=== PATIENT | female | born 1935 | race Caucasian/White ===

== ENCOUNTER 2017-04-16 15:56 | Inpatient (IN) | payer MEDICARE, BC ==
[2017-04-16] MEDS ORDERED: SODIUM CHLORIDE 0.9% 1,000 ML IV STA (17:22)
[2017-04-16] MEDS ORDERED: ONDANSETRON 4 MG/2 ML VIAL IVP STA (17:22)
[2017-04-16] MEDS ORDERED: HYDROmorphone 1 MG/ML 1 ML SYRINGE IVP STA (17:22)
--- NOTE | 2017-04-16 17:44 | ED ---
General Adult HPI - General Chief complaint: Extremity Problem,Nontraumatic Stated complaint: Shoulder pain Time Seen by Provider: 04/16/17 16:54 Source: patient, family, RN notes reviewed, old records reviewed Mode of arrival: wheelchair Limitations: no limitations - History of Present Illness Initial comments: This patient is a 81-year-old female presents emergency Department with multiple chief complaints. Patient reports that she has worsening left shoulder pain after completing 4 weeks of physical therapy. She has a history of a septic joint within her right shoulder, which she was treated with IV antibiotics for many months approximately 2 years ago. Patient reports that she has pain with any range of motion of the shoulder and elbow. She reports no lacerations or falls or trauma. She's also had increased overall weakness. She reports that her daughter is out of town and is unable to care area she reports that because of the severe arm pain she is unable to keep take care of her ADLs including feeding herself, and taking care of her hygiene needs. Patient states that she has some occasional chest pain and shortness of breath. She denies any nausea or vomiting. Denies any specific back pain or dysuria or abdominal pain.. She reports increased falls. She does ambulate with a walker. She arrives here with a cousin who is unable to take care of her. - Related Data Home Medications Medication Instructions Recorded Confirmed Albuterol Inhaler [Ventolin Hfa 1 - 2 puff INHALATION RT-Q6H PRN 04/16/17 Inhaler] Allopurinol [Zyloprim] 300 mg PO DAILY 04/16/17 04/16/17 Aspirin [Adult Low Dose Aspirin EC] 81 mg PO DAILY 04/16/17 04/16/17 Cholecalciferol (Vitamin D3) 2,000 unit PO DAILY 04/16/17 04/16/17 [Vitamin D3] Ferrous Sulfate [Feosol] 325 mg PO DAILY 04/16/17 04/16/17 Fluticasone Nasal Astor [Flonase 1 spray EA NOSTRIL DAILY PRN 04/16/17 04/16/17 Nasal Astor] Folic Acid 0.8 mg PO DAILY 04/16/17 04/16/17 Gabapentin [Neurontin] 200 mg PO BID 04/16/17 04/16/17 HYDROmorphone [Dilaudid] 2 mg PO DAILY PRN 04/16/17 04/16/17 Hydroxychloroquine Sulfate 200 mg PO BID 04/16/17 04/16/17 [Plaquenil] LORazepam [Ativan] 1 mg PO HS PRN 04/16/17 04/16/17 Methotrexate [Xatmep Oral Soln] 2.5 mg PO SA 04/16/17 04/16/17 Metoprolol Succinate [Toprol XL] 50 mg PO DAILY 04/16/17 04/16/17 Omeprazole 20 mg PO BID 04/16/17 04/16/17 Pilocarpine HCl 5 mg PO DAILY 04/16/17 04/16/17 Tiotropium 18 Mcg/Puff [Spiriva] 1 cap INHALATION RT-DAILY PRN 04/16/17 04/16/17 Venlafaxine HCl [Effexor] 37.5 mg PO DAILY@1200 04/16/17 04/16/17 Zinc 50 mg PO DAILY 04/16/17 04/16/17 amLODIPine [Norvasc] 2.5 mg PO DAILY 04/16/17 04/16/17 rOPINIRole HCL [Requip] 2 mg PO BID 04/16/17 04/16/17 Allergies Allergy/AdvReac Type Severity Reaction Status Date / Time Penicillins Allergy Rash/Hives Verified 04/16/17 18:06 meloxicam [From Mobic] AdvReac Nausea & Verified 04/16/17 18:06 Vomiting Review of Systems ROS Statement: Those systems with pertinent positive or pertinent negative responses have been documented in the HPI. ROS Other: All systems not noted in ROS Statement are negative. Past Medical History Past Medical History: Cancer, Chest Pain / Angina, COPD, Hyperlipidemia, Hypertension, Osteoarthritis (OA), Rheumatoid Arthritis (RA), Sleep Apnea/CPAP/ BIPAP Additional Past Medical History / Comment(s): gout lupus depression History of Any Multi-Drug Resistant Organisms: None Reported Past Surgical History: Appendectomy, Breast Surgery, Cholecystectomy, Heart Catheterization, Joint Replacement, Orthopedic Surgery Past Psychological History: Depression Smoking Status: Former smoker Past Alcohol Use History: None Reported Past Drug Use History: None Reported General Exam - General Exam Comments Initial Comments: This is a frail appearing 81-year-old female. Limitations: no limitations General appearance: alert, in no apparent distress Head exam: Present: atraumatic, normocephalic, normal inspection Eye exam: Present: normal appearance, PERRL, EOMI. Absent: scleral icterus, conjunctival injection, periorbital swelling ENT exam: Present: normal exam, mucous membranes moist. Absent: normal oropharynx (dry oropharynx) Neck exam: Present: normal inspection. Absent: tenderness, meningismus, lymphadenopathy Respiratory exam: Present: normal lung sounds bilaterally, other (right breast mastectomy). Absent: respiratory distress, wheezes, rales, rhonchi, stridor Cardiovascular Exam: Present: regular rate, normal rhythm, normal heart sounds. Absent: systolic murmur, diastolic murmur, rubs, gallop, clicks GI/Abdominal exam: Present: soft, normal bowel sounds, other (obese abdomen). Absent: distended, tenderness, guarding, rebound, rigid Extremities exam: Present: normal capillary refill. Absent: normal inspection, full ROM, tenderness, pedal edema, joint swelling, calf tenderness Left Shoulder Exam: Present: normal inspection. Absent: full ROM (limited ROM. Unable to abduct, flex or extend arm. ) Upper Arm exam: Present: normal inspection, tenderness (Significant tenderness and over left arm deltoid). Absent: full ROM Elbow exam: Present: normal inspection, full ROM Forearm Wrist exam: Present: normal inspection, full ROM Hand Wrist exam: Present: normal inspection, full ROM Back exam: Present: normal inspection Neurological exam: Present: alert, oriented X3, CN II-XII intact Psychiatric exam: Present: normal affect, normal mood Skin exam: Present: warm, dry, intact, normal color. Absent: rash Course Vital Signs 04/16/17 04/16/17 04/16/17 16:00 18:21 19:28 Temperature 98.6 F 98.1 F Pulse Rate 103 H 92 93 Respiratory 18 18 18 Rate Blood Pressure 125/66 142/69 132/61 O2 Sat by Pulse 99 97 99 Oximetry Medical Decision Making - Medical Decision Making 81-year-old female with multiple comorbidities including Dilshad arthritis, rheumatoid arthritis, breast cancer, COPD, coronary artery disease presents today with multiple complaints. She reports worsening left shoulder pain after completing physical therapy over the past 4 weeks. She has history of septic joint within her right shoulder. Patient has no fever, but arrived with chills and shivering in the emergency department. Patient reports occasional chest pain and shortness of breath as well. Patient EKG was reviewed and shows some sinus rhythm with PVCs, bundle branch block. Left ventricular hypertrophy. No previous EKGs to compare from. Patient chest x-ray was reviewedsignificant abnormalities at this time, evidence of cardiomegaly. Left shoulder x-ray shows severe degenerative changes questionable rotator cuff tear. Patient urinalysis positive for urinary infection, we will do a culture at this time. Given patient's increased weakness, and unable to perform ADLs, we will admit at this time. I also started the patient on Levaquin for evidence of UTI. She'll be admitted for frequent falls, UTI, and left shoulder pain. - Lab Data Result diagrams: 04/16/17 18:10 04/16/17 18:10 Lab Results 04/16/17 04/16/17 04/16/17 Range/Units 18:05 18:10 18:10 WBC 11.9 H (3.8-10.6) k/uL RBC 3.56 L (3.80-5.40) m/uL Hgb 11.5 (11.4-16.0) gm/dL Hct 35.9 (34.0-46.0) % MCV 100.7 H (80.0-100.0) fL MCH 32.4 (25.0-35.0) pg MCHC 32.1 (31.0-37.0) g/dL RDW 15.4 (11.5-15.5) % Plt Count 269 (150-450) k/uL Neutrophils % 75 % Lymphocytes % 17 % Monocytes % 5 % Eosinophils % 1 % Basophils % 1 % Neutrophils # 8.9 H (1.3-7.7) k/uL Lymphocytes # 2.1 (1.0-4.8) k/uL Monocytes # 0.6 (0-1.0) k/uL Eosinophils # 0.1 (0-0.7) k/uL Basophils # 0.1 (0-0.2) k/uL Macrocytosis Slight PT (9.0-12.0) sec INR (<1.2) APTT (22.0-30.0) sec Sodium (137-145) mmol/L Potassium (3.5-5.1) mmol/L Chloride (98-107) mmol/L Carbon Dioxide (22-30) mmol/L Anion Gap mmol/L BUN (7-17) mg/dL Creatinine (0.52-1.04) mg/dL Est GFR (MDRD) Af Amer (>60 ml/min/1.73 sqM) Est GFR (MDRD) Non-Af (>60 ml/min/1.73 sqM) Glucose (74-99) mg/dL Plasma Lactic Acid Sina (0.7-2.0) mmol/L Calcium (8.4-10.2) mg/dL Magnesium (1.6-2.3) mg/dL Total Bilirubin (0.2-1.3) mg/dL AST (14-36) U/L ALT (9-52) U/L Alkaline Phosphatase (38-126) U/L Total Creatine Kinase 45 (30-135) U/L CK-MB (CK-2) 1.0 (0.0-2.4) ng/mL CK-MB (CK-2) Rel Index 2.2 Troponin I <0.012 (0.000-0.034) ng/mL Total Protein (6.3-8.2) g/dL Albumin (3.5-5.0) g/dL Urine Color Yellow Urine Appearance Cloudy H (Clear) Urine pH 5.5 (5.0-8.0) Ur Specific [place] 1.022 (1.001-1.035) Urine Protein 2+ H (Negative) Urine Glucose (UA) Negative (Negative) Urine Ketones Negative (Negative) Urine Blood Negative (Negative) Urine Nitrite Negative (Negative) Urine Bilirubin 1+ H (Negative) Urine Urobilinogen 2.0 (<2.0) mg/dL Ur Leukocyte Esterase Large H (Negative) Urine WBC 19 H (0-5) /hpf Ur Squamous Epith Cells 24 H (0-4) /hpf Urine Bacteria Occasional H (None) /hpf Hyaline Casts 34 H (0-2) /lpf Urine Mucus Few H (None) /hpf 04/16/17 04/16/17 04/16/17 Range/Units 18:10 18:10 18:10 WBC (3.8-10.6) k/uL RBC (3.80-5.40) m/uL Hgb (11.4-16.0) gm/dL Hct (34.0-46.0) % MCV (80.0-100.0) fL MCH (25.0-35.0) pg MCHC (31.0-37.0) g/dL RDW (11.5-15.5) % Plt Count (150-450) k/uL Neutrophils % % Lymphocytes % % Monocytes % % Eosinophils % % Basophils % % Neutrophils # (1.3-7.7) k/uL Lymphocytes # (1.0-4.8) k/uL Monocytes # (0-1.0) k/uL Eosinophils # (0-0.7) k/uL Basophils # (0-0.2) k/uL Macrocytosis PT 10.9 (9.0-12.0) sec INR 1.1 (<1.2) APTT 21.3 L (22.0-30.0) sec Sodium 138 (137-145) mmol/L Potassium 4.4 (3.5-5.1) mmol/L Chloride 99 (98-107) mmol/L Carbon Dioxide 27 (22-30) mmol/L Anion Gap 12 mmol/L BUN 20 H (7-17) mg/dL Creatinine 0.80 (0.52-1.04) mg/dL Est GFR (MDRD) Af Amer >60 (>60 ml/min/1.73 sqM) Est GFR (MDRD) Non-Af >60 (>60 ml/min/1.73 sqM) Glucose 120 H (74-99) mg/dL Plasma Lactic Acid Sina 1.2 (0.7-2.0) mmol/L Calcium 9.4 (8.4-10.2) mg/dL Magnesium 1.3 L (1.6-2.3) mg/dL Total Bilirubin 0.6 (0.2-1.3) mg/dL AST 29 (14-36) U/L ALT 42 (9-52) U/L Alkaline Phosphatase 69 (38-126) U/L Total Creatine Kinase (30-135) U/L CK-MB (CK-2) (0.0-2.4) ng/mL CK-MB (CK-2) Rel Index Troponin I (0.000-0.034) ng/mL Total Protein 6.8 (6.3-8.2) g/dL Albumin 3.8 (3.5-5.0) g/dL Urine Color Urine Appearance (Clear) Urine pH (5.0-8.0) Ur Specific [place] (1.001-1.035) Urine Protein (Negative) Urine Glucose (UA) (Negative) Urine Ketones (Negative) Urine Blood (Negative) Urine Nitrite (Negative) Urine Bilirubin (Negative) Urine Urobilinogen (<2.0) mg/dL Ur Leukocyte Esterase (Negative) Urine WBC (0-5) /hpf Ur Squamous Epith Cells (0-4) /hpf Urine Bacteria (None) /hpf Hyaline Casts (0-2) /lpf Urine Mucus (None) /hpf 04/16/17 18:50 Patient's EKG shows sinus rhythm with PVCs. Possible left atrial Enlargement. Right Bundle Branch Block. Left anterior fascicular block. Left ventricular hypertrophy. Patient has been generally weak 89 beats were minute. GA interval 186 no seconds. QRS duration 140 ms. QT QTc is 4 09/12/1992 milliseconds. - Radiology Data Radiology results: report reviewed Cardiomegaly with chronic parenchymal changes without suspicious acute cardio primary process. Left shoulder x-ray was reviewed. There is high riding left humeral head suggesting chronic rotator cuff tear. Marked subchondral cystic change with acromion his superolateral aspect of humeral head. Spurring inferior and medial humeral head and glenoid articulation. Her Calcification at the Acromioclavicular Joint with Joint Space Loss. Osseous Structures Are Denies. Initially Ribs Are Intact and Unremarkable. Chronic Parenchymal Change and Visualized Lung Is Noted. Overall Impression Shows Demineralization and Degenerative Changes over the Left Shoulder. Disposition Clinical Impression: UTI (urinary tract infection), Frequent falls, Left shoulder pain Disposition: ADMITTED IP TO THIS HOSP Condition: Good Referrals: Gunner Nelson MD [Primary Care Provider] - 1-2 days Time of Disposition: 19:48
[2017-04-16 18:36] LABS: Basophils # (A) 0.1 k/uL (0-0.2); Basophils % (A) 1 %; Eosinophils # (A) 0.1 k/uL (0-0.7); Eosinophils % (A) 1 %; HCT 35.9 % (34.0-46.0); HGB 11.5 gm/dL (11.4-16.0); Lymphocytes # (A) 2.1 k/uL (1.0-4.8); Lymphocytes % (A) 17 %; MCH 32.4 pg (25.0-35.0); MCHC 32.1 g/dL (31.0-37.0); MCV 100.7 fL (80.0-100.0); Macrocytosis Slight; Monocytes # (A) 0.6 k/uL (0-1.0); Monocytes % (A) 5 %; Neutrophils # (A) 8.9 k/uL (1.3-7.7); Neutrophils % (A) 75 %; Platelet Count 269 k/uL (150-450); RBC 3.56 m/uL (3.80-5.40); RDW 15.4 % (11.5-15.5); WBC 11.9 k/uL (3.8-10.6)
[2017-04-16 18:42] LABS: Appearance,Urine Cloudy (Clear); Bacteria,Urine Occasional /hpf; Bilirubin,Urine 1+ (Negative); Blood,Urine Negative (Negative); Color,Urine Yellow; Glucose,Urine (UA) Negative (Negative); Hyaline Casts,Urine 34 /lpf (0-2); Ketones,Urine Negative (Negative); Leukocyte Esterase,Urine Large (Negative); Mucus,Urine Few /hpf; Nitrite,Urine Negative (Negative); PH, Urine 5.5 (5.0-8.0); Protein,Urine 2+ (Negative); Specific Gravity,Urine 1.022 (1.001-1.035); Squamous Epithelial Cell,Urine 24 /hpf (0-4); WBC,Urine 19 /hpf (0-5)
--- NOTE | 2017-04-16 18:47 | XR ---
EXAMINATION TYPE: XR shoulder complete LT DATE OF EXAM: 04/16/2017 CLINICAL HISTORY: Left shoulder pain. TECHNIQUE: Three views of the left shoulder are obtained. COMPARISON: None. FINDINGS: There is no acute fracture/dislocation evident in the left shoulder. There is high riding left humeral head suggesting chronic rotator cuff tear. There is marked subchondral cystic change in the acromion and superolateral aspect of the humeral head. There is spurring inferior medial humeral head and glenoid articulation. There is capsular calcification at acromioclavicular joint with joint space loss. Osseous structures are demineralized The visualized ribs are intact and unremarkable. Chr onic parenchymal change in the visualized lung is noted. IMPRESSION: There is demineralization and degenerative changes as detailed above.
[2017-04-16 18:49] LABS: ALT 42 U/L (9-52); AST 29 U/L (14-36); Albumin 3.8 g/dL (3.5-5.0); Alkaline Phosphatase 69 U/L (38-126); Anion Gap 12 mmol/L; Blood Urea Nitrogen 20 mg/dL (7-17); Calcium 9.4 mg/dL (8.4-10.2); Carbon Dioxide 27 mmol/L (22-30); Chloride 99 mmol/L (98-107); Glucose 120 mg/dL (74-99); Magnesium 1.3 mg/dL (1.6-2.3); Potassium 4.4 mmol/L (3.5-5.1); Sodium 138 mmol/L (137-145); Total Bilirubin 0.6 mg/dL (0.2-1.3); Total Protein 6.8 g/dL (6.3-8.2)
--- NOTE | 2017-04-16 18:49 | XR ---
EXAMINATION TYPE: XR chest 2V DATE OF EXAM: 04/16/2017 COMPARISON: Prior chest x-ray October 30, 2012 HISTORY: Numbness and weakness. TECHNIQUE: Frontal and lateral views of the chest are obtained. FINDINGS: There is chronic parenchymal change without suspicious focal air space opacity, pleural ef fusion, or pneumothorax seen. The cardiac silhouette size is enlarged. The osseous structures are demineralized. Right axillary surgical clips are redemonstrated. There is interval removal of right s houlder prosthesis with heterotopic ossification. IMPRESSION: Cardiomegaly and chronic parenchymal changes without suspicious acute pulmonary process.
[2017-04-16 18:50] LABS: Creatine Kinase 45 U/L (30-135)
[2017-04-16 19:03] LABS: Troponin I <0.012 ng/mL (0.000-0.034)
[2017-04-16 19:12] LABS: INR 1.1 (<1.2); Partial Thromboplastin Time 21.3 sec (22.0-30.0); Prothrombin Time 10.9 sec (9.0-12.0)
[2017-04-16] MEDS ORDERED: LEVOFLOXACIN 750MG-D5W PMX 750 MG in DEXTROSE/WATER 1 150ML.BAG IVPB STA (19:24)
[2017-04-16] MEDS: SODIUM CHLORIDE 0.9% 1,000 ML IV SCH (19:26)
[2017-04-16] MEDS ORDERED: NALOXONE 0.4 MG/ML 1 ML VIAL IV PRN (19:50)
[2017-04-16] MEDS ORDERED: HYDROmorphone 1 MG/ML 1 ML SYRINGE IVP PRN (19:50)
[2017-04-16] MEDS ORDERED: ACETAMINOPHEN TAB 325 MG TAB PO PRN (19:50)
[2017-04-16] MEDS ORDERED: BISACODYL 5 MG TABLET.DR PO PRN (19:50)
[2017-04-16] MEDS ORDERED: ONDANSETRON 4 MG/2 ML VIAL IVP PRN (19:50)
[2017-04-16] MEDS ORDERED: IPRATROPIUM 0.5 MG/2.5 ML NEBU INHALATION PRN (19:52)
[2017-04-16] MEDS ORDERED: FLUTICASONE 50MCG/SPRAY NASAL 16GM EA NOSTRIL PRN (19:52)
[2017-04-16] MEDS ORDERED: HYDROmorphone 2 MG TAB PO PRN (19:52)
[2017-04-16] MEDS ORDERED: METHOTREXATE SODIUM 2.5 MG TAB PO SCH (20:00)
[2017-04-16 23:10] VITALS: BMI 35.7
[2017-04-16] MEDS: PANTOPRAZOLE 40 MG TABLET PO SCH (23:47)
[2017-04-16] MEDS: GABAPENTIN 100 MG CAP PO SCH (23:47)
[2017-04-16] MEDS: HYDROXYCHLOROQUINE SULFATE 200 MG TAB PO SCH (23:47)
[2017-04-17 00:42] LABS: Creatine Kinase MB 0.9 ng/mL (0.0-2.4); Troponin I 0.018 ng/mL (0.000-0.034)
[2017-04-17] MEDS: SODIUM CHLORIDE 0.9% 1,000 ML IV SCH (06:10)
[2017-04-17] MEDS: IBUPROFEN 400 MG TAB PO PRN ×2 (07:02→22:15)
[2017-04-17 08:12] LABS: Creatine Kinase MB 0.9 ng/mL (0.0-2.4); Troponin I 0.016 ng/mL (0.000-0.034)
[2017-04-17] MEDS: CHOLECALCIFEROL 1,000 UNIT TAB PO SCH (08:41)
[2017-04-17] MEDS: PANTOPRAZOLE 40 MG TABLET PO SCH ×2 (08:41→20:05)
[2017-04-17] MEDS: PILOCARPINE 5 MG TAB PO SCH (08:41)
[2017-04-17] MEDS: METOPROLOL SUCCINATE (ER) 50 MG TAB.ER.24H PO SCH (08:41)
[2017-04-17] MEDS: HYDROXYCHLOROQUINE SULFATE 200 MG TAB PO SCH ×2 (08:41→20:05)
[2017-04-17] MEDS: amLODIPine 2.5 MG TAB PO SCH (08:41)
[2017-04-17] MEDS: GABAPENTIN 100 MG CAP PO SCH ×2 (08:41→20:05)
[2017-04-17] MEDS: ALLOPURINOL 300 MG TAB PO SCH (08:42)
[2017-04-17] MEDS: FERROUS SULFATE 325 MG TAB PO SCH (08:42)
[2017-04-17] MEDS: ZINC SULFATE 220 MG CAP PO SCH (08:42)
[2017-04-17] MEDS: FOLIC ACID 1 MG TAB PO SCH (08:43)
[2017-04-17] MEDS: ASPIRIN 81 MG PO SCH (08:43)
[2017-04-17] MEDS: PANTOPRAZOLE 40 MG/10 ML VIAL IV SCH (08:51)
[2017-04-17] MEDS: VENLAFAXINE HCL 37.5 MG TAB PO SCH (13:00)
[2017-04-17] MEDS: MAGNESIUM SULFATE-D5W PMX 1 GM in DEXTROSE/WATER 1 100ML.BAG IVPB SCH ×3 (13:24→16:23)
[2017-04-17] MEDS: HYDROcodone/APAP 5-325MG 1 EACH TAB PO PRN (18:06)
[2017-04-17] MEDS: LORazepam 1 MG TAB PO PRN (22:15)
[2017-04-18] MEDS: GABAPENTIN 100 MG CAP PO SCH ×2 (08:10→20:53)
[2017-04-18] MEDS: ZINC SULFATE 220 MG CAP PO SCH (08:10)
[2017-04-18] MEDS: FERROUS SULFATE 325 MG TAB PO SCH (08:11)
[2017-04-18] MEDS: ALLOPURINOL 300 MG TAB PO SCH (08:11)
[2017-04-18] MEDS: ASPIRIN 81 MG PO SCH (08:11)
[2017-04-18] MEDS: METOPROLOL SUCCINATE (ER) 50 MG TAB.ER.24H PO SCH (08:11)
[2017-04-18] MEDS: PANTOPRAZOLE 40 MG TABLET PO SCH ×2 (08:11→21:08)
[2017-04-18] MEDS: amLODIPine 2.5 MG TAB PO SCH (08:11)
[2017-04-18] MEDS: HYDROXYCHLOROQUINE SULFATE 200 MG TAB PO SCH ×2 (08:11→20:53)
[2017-04-18] MEDS: PILOCARPINE 5 MG TAB PO SCH (08:11)
[2017-04-18] MEDS: FOLIC ACID 1 MG TAB PO SCH (08:11)
[2017-04-18] MEDS: HYDROcodone/APAP 5-325MG 1 EACH TAB PO PRN ×2 (08:11→20:52)
[2017-04-18] MEDS: PANTOPRAZOLE 40 MG/10 ML VIAL IV SCH ×2 (08:15→20:53)
[2017-04-18] MEDS: VENLAFAXINE HCL 37.5 MG TAB PO SCH (10:57)
[2017-04-18] MEDS: CHOLECALCIFEROL 1,000 UNIT TAB PO SCH (10:57)
--- NOTE | 2017-04-18 19:13 | HP ---
HISTORY AND PHYSICAL CHIEF COMPLAINT: General debility and failure to thrive with bilateral shoulder pain. HISTORY OF PRESENT ILLNESS: This is another admission for this 81-year-old white female who has had multiple problems, including cancer of the breast, history of right shoulder replacement and secondary infection, for which the joint was removed. She has also been having a lot of pain in her left shoulder. She lives alone and is not handling things well. She cannot take care of herself any longer. She has also apparently been falling and came to the emergency room, where she was found to have also a urinary tract infection. REVIEW OF SYSTEMS: She denies any focal neurologic deficits, change in vision or hearing, headache, seizures, chest pain, palpitations, orthopnea, PND, abdominal pain, nausea, vomiting, hematemesis, melena, hematochezia, colitis, diverticulosis, diverticulitis, hemorrhoids, jaundice, hepatitis, cirrhosis, hematuria, frequency, urgency, renal failure, etc. She does have a history of atrial fibrillation. Past medical history, family history, and personal and social histories reveal that she is ALLERGIC to MOBIC and PENICILLIN. She has had numerous surgeries. She has had a cholecystectomy. She used to smoke but quit many many years ago. MEDICATIONS: Medications include: 1. Gabapentin 300 mg twice a day. 2. Hydroxychloroquine 200 mg twice a day. 3. Vitamin D 2000 units a day. 4. Ventolin HFA. 5. Venlafaxine 37.5 once a day. 6. Spiriva once a day. 7. CPAP machine. 8. Requip 2 mg twice a day. 9. Pilocarpine eyedrops. 10.Omeprazole 20 mg twice a day. 11.Metoprolol 50 mg once a day. 12.Methotrexate 1 gram once a week. 13.Hydromorphone 2 mg twice a day. 14.Flonase once a day. 15.Aspirin 81 mg a day. 16.Ativan 1 mg t.i.d. p.r.n. 17.Amlodipine 2.5 mg once a day. 18.Allopurinol 300 mg once a day. PHYSICAL EXAMINATION: Blood pressure 136/72, pulse 66, respirations 14 and she is afebrile. In general, she appeared to be overweight and uncomfortable. She was slightly pale. Head ears, eyes, nose, mouth and throat were normal, neck veins not distended. Carotids were normal. Chest was clear. Cardiac exam demonstrated atrial fibrillation and the abdomen was soft and non-tender. Extremities were normal except for the shoulders. She had postoperative changes of the right shoulder where her joint has been removed. She has decreased range of motion and internal and external rotation as well as abduction in the left shoulder. Neurologically she is intact. ADMITTING DIAGNOSES: 1. Frequent falls. 2. General debility and inability to use the shoulder. 3. History of carcinoma of the breast. 4. History of infection of right shoulder prosthesis. 5. Rheumatoid arthritis. 6. History of coronary artery disease. PLAN: 1. Bed rest. 2. IV fluids. 3. Pain control. 4. Discharge planning. MMODL / IJN: [id number] /
[2017-04-18] MEDS: ALBUTEROL NEBULIZED 2.5 MG/3 ML INHALATION PRN (20:19)
[2017-04-18] MEDS: LORazepam 1 MG TAB PO PRN (20:53)
--- NOTE | 2017-04-18 21:07 | PN ---
PROGRESS NOTE DATE OF SERVICE: 04/17/2017 CHIEF COMPLAINT: General debility due to arthritis, pain in both shoulders. HISTORY OF PRESENT ILLNESS: This lady is still having a lot of discomfort in the shoulders. She was going to therapy, and she thinks this aggravated things. She lives alone and will need help for some period of time. PHYSICAL EXAMINATION: She is afebrile. Chest is clear. Cardiac exam is normal. Abdomen is soft, nontender. IMPRESSION: 1. General debility. 2. Bilateral shoulder pain. 3. History of carcinoma of the breast. 4. Frequent falling. PLAN: Will arrange for further evaluation after the first week, including a discharge plan. MMODL / IJN: [id number] /
--- NOTE | 2017-04-18 21:13 | PN ---
PROGRESS NOTE DATE OF SERVICE: 04/18/2017 CHIEF COMPLAINT: General debility. HISTORY OF PRESENT ILLNESS: This lady is just about the same, and she still has a lot of pain in both shoulders. We will plan to admit her to the hospital and then start working on a discharge plan. PHYSICAL EXAMINATION: Her chest is clear. Cardiac exam is normal. Abdomen is soft, nontender. IMPRESSION: 1. General debility. 2. Failure to use either shoulder. PLAN: healthcare advisory services manager referral for placement. MMODL / IJN: [id number] /
[2017-04-19] MEDS: SODIUM CHLORIDE 0.9% 1,000 ML IV SCH ×4 (06:01→20:24)
[2017-04-19] MEDS: ALLOPURINOL 300 MG TAB PO SCH (08:05)
[2017-04-19] MEDS: METOPROLOL SUCCINATE (ER) 50 MG TAB.ER.24H PO SCH (08:05)
[2017-04-19] MEDS: FERROUS SULFATE 325 MG TAB PO SCH (08:05)
[2017-04-19] MEDS: FOLIC ACID 1 MG TAB PO SCH (08:05)
[2017-04-19] MEDS: GABAPENTIN 100 MG CAP PO SCH ×2 (08:05→20:25)
[2017-04-19] MEDS: ZINC SULFATE 220 MG CAP PO SCH (08:05)
[2017-04-19] MEDS: PILOCARPINE 5 MG TAB PO SCH (08:05)
[2017-04-19] MEDS: amLODIPine 2.5 MG TAB PO SCH (08:05)
[2017-04-19] MEDS: PANTOPRAZOLE 40 MG TABLET PO SCH ×2 (08:05→20:24)
[2017-04-19] MEDS: CHOLECALCIFEROL 1,000 UNIT TAB PO SCH (08:06)
[2017-04-19] MEDS: HYDROXYCHLOROQUINE SULFATE 200 MG TAB PO SCH ×2 (08:06→20:24)
[2017-04-19] MEDS ORDERED: FERROUS SULFATE 325 MG TAB PO SCH (09:00)
[2017-04-19] MEDS: ASPIRIN 81 MG PO SCH (09:23)
[2017-04-19] MEDS: HYDROcodone/APAP 5-325MG 1 EACH TAB PO PRN ×4 (10:32→23:04)
[2017-04-19] MEDS: ALBUTEROL NEBULIZED 2.5 MG/3 ML INHALATION PRN (11:45)
[2017-04-19] MEDS: VENLAFAXINE HCL 37.5 MG TAB PO SCH (12:00)
[2017-04-19 15:19] VITALS: RESP 16
[2017-04-19] MEDS: LORazepam 1 MG TAB PO PRN (23:04)
[2017-04-20] MEDS: SODIUM CHLORIDE 0.9% 1,000 ML IV SCH ×3 (03:37→22:38)
--- NOTE | 2017-04-20 06:36 | PN ---
PROGRESS NOTE DATE OF SERVICE: 04/19/2017 CHIEF COMPLAINT: Failure to thrive and discomfort in both shoulders. HISTORY OF PRESENT ILLNESS: This lady is doing fairly well. There has been no interval change. She still has a great deal of pain in both shoulders and she is looking and going to [facility]. PHYSICAL EXAM: Chest is clear. Cardiac exam is normal. Shoulders are tender and irritable on almost any range of motion. IMPRESSION: 1. Acute pain in both shoulders. 2. History of carcinoma of the breast. 3. Hypertension. PLAN: Probably moved to [facility] when bed is available. MMODL / IJN: [id number] /
[2017-04-20] MEDS: PILOCARPINE 5 MG TAB PO SCH (08:46)
[2017-04-20] MEDS: FERROUS SULFATE 325 MG TAB PO SCH (08:46)
[2017-04-20] MEDS: HYDROXYCHLOROQUINE SULFATE 200 MG TAB PO SCH ×2 (08:46→20:51)
[2017-04-20] MEDS: amLODIPine 2.5 MG TAB PO SCH (08:47)
[2017-04-20] MEDS: FOLIC ACID 1 MG TAB PO SCH (08:47)
[2017-04-20] MEDS: CHOLECALCIFEROL 1,000 UNIT TAB PO SCH (08:47)
[2017-04-20] MEDS: GABAPENTIN 100 MG CAP PO SCH ×2 (08:47→20:51)
[2017-04-20] MEDS: ASPIRIN 81 MG PO SCH (08:47)
[2017-04-20] MEDS: ALLOPURINOL 300 MG TAB PO SCH (08:47)
[2017-04-20] MEDS: ZINC SULFATE 220 MG CAP PO SCH (08:47)
[2017-04-20] MEDS: PANTOPRAZOLE 40 MG TABLET PO SCH ×2 (08:48→20:51)
[2017-04-20] MEDS: METOPROLOL SUCCINATE (ER) 50 MG TAB.ER.24H PO SCH (08:48)
--- NOTE | 2017-04-20 12:42 | PN ---
PROGRESS NOTE DATE OF SERVICE: 04/20/2017. CHIEF COMPLAINT: Bilateral arthritis of the shoulders and inability to function with either upper extremity. HISTORY OF PRESENT ILLNESS: This lady is doing well. Pain continues. Discharge planning is working on getting her a bed at [facility]. PHYSICAL EXAM: Chest is clear. The cardiac exam is normal. The abdomen is soft and nontender. IMPRESSION: 1. Inability to use either upper extremity. 2. History of carcinoma of the breast. 3. General debility. PLAN: Wait for discharge plan. MMODL / IJN: [id number] /
[2017-04-20] MEDS: VENLAFAXINE HCL 37.5 MG TAB PO SCH (13:04)
[2017-04-20] MEDS: HYDROcodone/APAP 5-325MG 1 EACH TAB PO PRN ×2 (15:43→23:26)
[2017-04-20] MEDS: ALBUTEROL NEBULIZED 2.5 MG/3 ML INHALATION PRN ×2 (15:59→20:19)
[2017-04-20] MEDS: LORazepam 1 MG TAB PO PRN (23:26)
[2017-04-21 08:34] VITALS: TEMP 98.2
[2017-04-21] MEDS: HYDROcodone/APAP 5-325MG 1 EACH TAB PO PRN ×2 (08:39→14:26)
[2017-04-21] MEDS: METOPROLOL SUCCINATE (ER) 50 MG TAB.ER.24H PO SCH (08:40)
[2017-04-21] MEDS: FOLIC ACID 1 MG TAB PO SCH (08:40)
[2017-04-21] MEDS: amLODIPine 2.5 MG TAB PO SCH (08:40)
[2017-04-21] MEDS: GABAPENTIN 100 MG CAP PO SCH (08:40)
[2017-04-21] MEDS: ASPIRIN 81 MG PO SCH (08:40)
[2017-04-21] MEDS: CHOLECALCIFEROL 1,000 UNIT TAB PO SCH (08:40)
[2017-04-21] MEDS: HYDROXYCHLOROQUINE SULFATE 200 MG TAB PO SCH (08:40)
[2017-04-21] MEDS: ALLOPURINOL 300 MG TAB PO SCH (08:40)
[2017-04-21] MEDS: FERROUS SULFATE 325 MG TAB PO SCH (08:40)
[2017-04-21] MEDS: ZINC SULFATE 220 MG CAP PO SCH (09:22)
[2017-04-21] MEDS: PANTOPRAZOLE 40 MG TABLET PO SCH (09:22)
[2017-04-21] MEDS: PILOCARPINE 5 MG TAB PO SCH (09:22)
[2017-04-21] MEDS: SODIUM CHLORIDE 0.9% 1,000 ML IV SCH (10:58)
--- NOTE | 2017-04-21 12:13 | DS ---
DISCHARGE SUMMARY CHIEF COMPLAINT: General debility and failure to thrive due to loss range of motion and pain in both shoulders. HISTORY OF PRESENT ILLNESS AND PHYSICAL EXAM: Details of this lady's history and physical can be found in the initial workup. LABORATORY STUDIES: While she was in the hospital she had laboratory studies, details which can be found in the laboratory section of her chart. COURSE IN HOSPITAL: After admission, she was placed on bedrest and started on analgesics and attempted occupational therapy. Pain, loss of range of motion of both shoulders remains and it was felt she could not return home to live by herself and would require rehab care. Arrangements were made for her to go to [facility] and she will go there on the . FINAL DIAGNOSES: 1. Bilateral shoulder arthritis, tendinitis and loss range of motion. 2. History of carcinoma of the breast with history of infected prosthesis and osteomyelitis of the right shoulder. 3. Osteoarthritis of left shoulder. OPERATIONS: None. CONSULTATIONS: None. She is improved. MMODL / IJN: [id number] /
[2017-04-21] MEDS: VENLAFAXINE HCL 37.5 MG TAB PO SCH (12:27)
[2017-04-21 15:09] VITALS: BP 94/63; PULSE 74
== END 2017-04-21 15:25 | DRG 554 ==
LOC: EC 15:56 → 3OBS 21:01 → OBSVTOIN 04-18 15:56 → 3SUR 04-18 23:04
PROVIDERS: ADMIT Family Medicine; ATTEND Family Medicine
DX: M19.011 Primary osteoarthritis, right shoulder (principal); I11.9 Hypertensive heart disease without heart failure; I45.4 Nonspecific intraventricular block; J44.9 Chronic obstructive pulmonary disease, unspecified; N39.0 Urinary tract infection, site not specified; E78.5 Hyperlipidemia, unspecified; M75.91 Shoulder lesion, unspecified, right shoulder; M19.012 Primary osteoarthritis, left shoulder; M75.92 Shoulder lesion, unspecified, left shoulder; G47.30 Sleep apnea, unspecified; I25.10 Atherosclerotic heart disease of native coronary artery without angina pectoris; I51.7 Cardiomegaly; M06.9 Rheumatoid arthritis, unspecified; M10.9 Gout, unspecified; R29.6 Repeated falls; Z96.611 Presence of right artificial shoulder joint; R62.7 Adult failure to thrive; Z79.82 Long term (current) use of aspirin; Z79.899 Other long term (current) drug therapy; Z87.891 Personal history of nicotine dependence; Z88.6 Allergy status to analgesic agent; Z88.0 Allergy status to penicillin; Z79.51 Long term (current) use of inhaled steroids; Z79.891 Long term (current) use of opiate analgesic; Z85.3 Personal history of malignant neoplasm of breast
CPT/HCPCS: 36415; 71046; 80053; 81001; 82550; 82553; 83605; 83735; 84484; 85025; 85610; 85730; 87086; 93005; 94640; 94760; 96361; 96365; 96366; 96375; 99285

== ENCOUNTER 2018-07-21 11:17 | Inpatient (IN) | payer MEDICARE, BC, OTHER ==
[2018-07-21] MEDS ORDERED: VANCOMYCIN IV PER PHARMACY 1 EACH MISC MISCELLANE PRN (12:18)
--- NOTE | 2018-07-21 12:24 | ED ---
Extremity Problem HPI - General Chief complaint: Extremity Problem,Nontraumatic Stated complaint: Cellutitis in legs Time Seen by Provider: 07/21/18 11:47 Source: patient, family, RN notes reviewed, old records reviewed Mode of arrival: wheelchair Limitations: no limitations - History of Present Illness Initial comments: This is an 82-year-old male the ER for evaluation. Patient resents today for evaluation regards to bilateral lower extremity edema erythema and cellulitis. Patient has had her. Patient sent in by Batsheva to her family doctor was again sent patient in the ER for evaluation. Patient presents today with continued swelling. Patient does have lines of demarcation, cellulitis 6 but is spreading proximal to lie down lower extremity cellulitis and did previously, lines were drawn to measure infection spread. Infection is spreading proximal MD Complaint: extremity pain, extremity swelling, other (erythema, warmth) -: days(s) Location: bilateral lower extremity History of Same: Yes -: Yes fever Radiation: proximal Severity scale (1-10): 5 Quality: aching Consistency: constant Improves with: nothing Worsens with: nothing Associated Symptoms: fever - Related Data Home Medications Medication Instructions Recorded Confirmed Cholecalciferol (Vitamin D3) 2,000 unit PO DAILY 04/16/17 07/21/18 [Vitamin D3] Fluticasone Nasal [place] [Flonase 1 spray EA NOSTRIL DAILY PRN 04/16/17 07/21/18 Nasal [place]] Hydroxychloroquine Sulfate 200 mg PO BID 04/16/17 07/21/18 [Plaquenil] Omeprazole 20 mg PO BID 04/16/17 07/21/18 Tiotropium 18 Mcg/Puff [Spiriva] 1 cap INHALATION RT-DAILY PRN 04/16/17 07/21/18 rOPINIRole HCL [Requip] 2 mg PO BID 04/16/17 07/21/18 Acetaminophen [Tylenol] 500 mg PO Q4-6H PRN 07/21/18 07/21/18 Acetaminophen/Diphenhydramine 1 tab PO HS 07/21/18 07/21/18 [Tylenol PM Extra Strength] Albuterol Sulfate [Proventil Hfa] 2 puff INHALATION RT-Q6H PRN 07/21/18 07/21/18 Bisacodyl [Dulcolax] 10 mg RECTAL DAILY PRN 07/21/18 07/21/18 Budesonide [Pulmicort] 0.5 mg INHALATION BID 07/21/18 07/21/18 Clindamycin HCl [Cleocin] 600 mg PO BID 07/21/18 07/21/18 Folic Acid 0.8 mg PO DAILY 07/21/18 07/21/18 Furosemide [Lasix] 20 mg PO DAILY 07/21/18 07/21/18 Gabapentin [Neurontin] 300 mg PO TID 07/21/18 07/21/18 Hydrocodone/Acetaminophen [[place] 1 tab PO BID 07/21/18 07/21/18 10-325] Ipratropium-Albuterol Nebulize 1 vial INHALATION Q4H PRN 07/21/18 07/21/18 [Duoneb 0.5 mg-3 mg/3 ml Soln] Mag Hydrox/Al Hydrox/Simeth 15 ml PO QID PRN 07/21/18 07/21/18 [Maalox] Magnesium Hydroxide [Milk of 2,400 mg PO DAILY PRN 07/21/18 07/21/18 Magnesia] Menthol [Biofreeze] 1 applic TOPICAL QID PRN MDD 07/21/18 07/21/18 SHOULDERS AND BACK Montelukast Sodium [Singulair] 10 mg PO DAILY 07/21/18 07/21/18 Na Phos,M-B/Na Phos,Di-Ba [Fleet 133 ml RECTAL Q4D PRN 07/21/18 07/21/18 Adult] Nitroglycerin Sl Tabs [Nitrostat] 0.4 mg SUBLINGUAL Q5M PRN 07/21/18 07/21/18 Nystatin 100,000 Unit/gm Powd 1 applic TOPICAL BID 07/21/18 07/21/18 [Mycostatin Powder] Sennosides [Senna] 8.6 mg PO BID 07/21/18 07/21/18 Venlafaxine HCl ER [Effexor Xr] 37.5 mg PO DAILY 07/21/18 07/21/18 guaiFENesin [guaiFENesin Oral 200 mg PO TID PRN 07/21/18 07/21/18 Solution] Previous Rx's Medication Instructions Recorded Ferrous Sulfate [Iron (65 MG 325 mg PO DAILY tab 04/21/17 Elemental)] Allergies Allergy/AdvReac Type Severity Reaction Status Date / Time Penicillins Allergy Rash/Hives Verified 07/21/18 12:02 meloxicam [From Mobic] AdvReac Nausea & Verified 07/21/18 12:02 Vomiting Review of Systems ROS Statement: Those systems with pertinent positive or pertinent negative responses have been documented in the HPI. ROS Other: All systems not noted in ROS Statement are negative. Past Medical History Past Medical History: Cancer, Chest Pain / Angina, COPD, Hyperlipidemia, Hypertension, Osteoarthritis (OA), Rheumatoid Arthritis (RA), Sleep Apnea/CPAP/BIPAP Additional Past Medical History / Comment(s): gout lupus depression History of Any Multi-Drug Resistant Organisms: None Reported Past Surgical History: Appendectomy, Breast Surgery, Cholecystectomy, Heart Catheterization, Joint Replacement, Orthopedic Surgery Additional Past Surgical History / Comment(s): Rt. mastectomy Past Anesthesia/Blood Transfusion Reactions: No Reported Reaction Past Psychological History: Depression Smoking Status: Former smoker Past Alcohol Use History: None Reported Past Drug Use History: None Reported - Past Family History Brother(s) Family Medical History: Cancer Additional Family Medical History / Comment(s): rectal and liver Mother Family Medical History: CVA/TIA Father Family Medical History: Osteoarthritis (OA) General Exam - General Exam Comments Initial Comments: Bilateral lower extremity sialitis erythema and warmth was sleeping in both legs, spreading proximal to prior lines of demarcation Limitations: no limitations General appearance: alert, in no apparent distress Head exam: Present: atraumatic, normocephalic, normal inspection Eye exam: Present: normal appearance, PERRL, EOMI. Absent: scleral icterus, conjunctival injection, periorbital swelling ENT exam: Present: normal exam, mucous membranes moist Neck exam: Present: normal inspection. Absent: tenderness, meningismus, lymphadenopathy Respiratory exam: Present: normal lung sounds bilaterally. Absent: respiratory distress, wheezes, rales, rhonchi, stridor Cardiovascular Exam: Present: regular rate, normal rhythm, normal heart sounds. Absent: systolic murmur, diastolic murmur, rubs, gallop, clicks GI/Abdominal exam: Present: soft, normal bowel sounds. Absent: distended, tenderness, guarding, rebound, rigid Extremities exam: Present: normal inspection, full ROM, normal capillary refill. Absent: tenderness, pedal edema, joint swelling, calf tenderness Back exam: Present: normal inspection Neurological exam: Present: alert, oriented X3, CN II-XII intact Psychiatric exam: Present: normal affect, normal mood Skin exam: Present: warm, dry, intact, normal color. Absent: rash Course Vital Signs 07/21/18 11:30 Temperature 98.5 F Pulse Rate 94 Respiratory 18 Rate Blood Pressure 92/61 O2 Sat by Pulse 98 Oximetry - Reevaluation(s) Reevaluation #1: 07/21/18 12:23 Medical record reviewed Reevaluation #2: 07/21/18 12:23 Patient's in no acute distress - Consultations Consultation #1: Spoke with Dr. Nelson who is okay for admission Medical Decision Making - Medical Decision Making 82 female the ER for evaluation bilateral lower extremity cellulitis. Patient be admitted for blood cultures on IV antibiotics Disposition Clinical Impression: Bilateral lower leg cellulitis Disposition: ADMITTED IP TO THIS HOSP Condition: Fair Is patient prescribed a controlled substance at d/c from ED?: No Referrals: Gunner Nelson MD [Primary Care Provider] - 1-2 days
[2018-07-21] MEDS ORDERED: VANCOMYCIN 1,750 MG in SODIUM CHLORIDE 0.9% 500 ML 500 ML IVPB STA (12:32)
[2018-07-21 13:15] LABS: Basophils % (A) 0 %; Eosinophils # (A) 0.2 k/uL (0-0.7); Eosinophils % (A) 3 %; HGB 11.2 gm/dL (11.4-16.0); Hypochromasia Slight; Lymphocytes # (A) 0.9 k/uL (1.0-4.8); Lymphocytes % (A) 14 %; MCH 28.6 pg (25.0-35.0); Mean Platelet Volume 7.3; Monocytes # (A) 0.4 k/uL (0-1.0); Monocytes % (A) 6 %; Neutrophils # (A) 5.2 k/uL (1.3-7.7); Neutrophils % (A) 77 %; Platelet Count 113 k/uL (150-450); RBC 3.91 m/uL (3.80-5.40); RDW 15.5 % (11.5-15.5); WBC 6.8 k/uL (3.8-10.6)
[2018-07-21 13:24] LABS: ALT 32 U/L (9-52); AST 25 U/L (14-36); Alkaline Phosphatase 69 U/L (38-126); Anion Gap 11 mmol/L; Blood Urea Nitrogen 22 mg/dL (7-17); Carbon Dioxide 28 mmol/L (22-30); Chloride 102 mmol/L (98-107); Glucose 107 mg/dL (74-99); Magnesium 1.4 mg/dL (1.6-2.3); Phosphorus 3.1 mg/dL (2.5-4.5); Potassium 3.6 mmol/L (3.5-5.1); Sodium 141 mmol/L (137-145); Total Protein 6.8 g/dL (6.3-8.2)
[2018-07-21] MEDS ORDERED: NA PHOS,M-B/NA PHOS,DI-BA 133 ML ENEMA RECTAL PRN (18:17)
[2018-07-21] MEDS ORDERED: FLUTICASONE 50MCG/SPRAY NASAL 16GM EA NOSTRIL PRN (18:17)
[2018-07-21] MEDS ORDERED: guaiFENesin SYRUP 100MG/5ML 200 MG/10 ML CUP PO PRN (18:17)
[2018-07-21] MEDS ORDERED: MAG HYDROX/AL HYDROX/SIMETH 30 ML CUP PO PRN (18:17)
[2018-07-21] MEDS ORDERED: NITROGLYCERIN SL TABS 0.4 MG TAB SUBLINGUAL PRN (18:17)
[2018-07-21] MEDS ORDERED: ALBUTEROL INHALER 60 PUFF/8 GM INHALER INHALATION PRN (18:17)
[2018-07-21] MEDS ORDERED: BISACODYL 10 MG SUPP RECTAL PRN (18:17)
[2018-07-21] MEDS ORDERED: ACETAMINOPHEN TAB 500 MG TAB PO PRN (18:17)
[2018-07-21] MEDS ORDERED: MAGNESIUM HYDROXIDE 2,400 MG/10 ML CUP PO PRN (18:17)
[2018-07-21] MEDS: BUDESONIDE 0.5 MG/2 ML NEBU INHALATION SCH (19:42)
[2018-07-21] MEDS: IPRATROPIUM-ALBUTEROL 3 ML NEB INHALATION PRN (19:42)
--- NOTE | 2018-07-21 20:11 | HP ---
HISTORY AND PHYSICAL CHIEF COMPLAINT: Pain, swelling and redness in the lower legs. HISTORY OF PRESENT ILLNESS: This is another recent admission for this 82-year-old female. She has had a lot of trouble with various deep and superficial skin infections. She had a right mastectomy many years ago and has lymphedema in the right arm. She has had a shoulder replacement on the right which became infected and eventually had to be removed. She recently was in the hospital with cellulitis of the right forearm and right wrist. She came in on the day of admission from the half-way with redness, pain and swelling in both lower legs and mostly on the left, none on the right. She also had an elevated temperature. She was admitted for IV fluids, antibiotics and elevation. REVIEW OF SYSTEMS: She has had some chills. She has had no neurologic problems, change in the vision or the hearing, chest pain, cough, shortness of breath, heart disease, palpitations, orthopnea, PND, abdominal pain, nausea, vomiting, diarrhea, melena, hematochezia, dysuria, frequency, urgency, etc. Past medical history, family history, and personal and social histories are otherwise unremarkable and unchanged. She takes: 1. Acetaminophen. 2. Albuterol inhaler. 3. Dulcolax. 4. Pulmicort 0.5 twice a day. 5. Vitamin D3. 6. Clindamycin. 7. Ferrous sulfate. 8. Fluticasone spray. 9. Folic acid. 10.Lasix. 11.Gabapentin. 12.Guaifenesin. 13.Vicodin. 14.Plaquenil. 15.Updrafts of DuoNeb. 16.Singulair. 17.Fleets enema p.r.n. 18.Nystatin powder. 19.Omeprazole. 20.Senna. 21.Spiriva. 22.Venlafaxine. ALLERGIES: MELOXICAM and PENICILLIN. Remainder of the history is unremarkable. Laboratory studies revealed hemoglobin 11.2 with a white count of 6.8. Troponin was elevated. BUN was 22 and creatinine 11. PHYSICAL EXAMINATION: Blood pressure 94/73, pulse of 80, temperature 98.5, respirations of 18. In general, she is overweight and in no acute distress. Skin color is normal. Skin is warm and dry. Head, ears, eyes, nose, mouth and throat are normal. She has edema of the right arm from lymphatic obstruction. Her chest is clear. Cardiac exam is normal. The abdomen is protuberant and soft. Extremities demonstrate 3 to 4+ edema bilaterally. She has marked cellulitis on the left lower leg as well as the right, but it was worse on the left. It was tender. Neurologically she is intact. IMPRESSION: 1. Cellulitis and lymphangitis of the lower extremities. 2. History of carcinoma of the right breast. 3. Lymphedema in the right arm. PLAN: 1. Bed rest. 2. IV fluids. 3. Elevation of legs. 4. IV antibiotics. MMODL / IJN: [id number] /
[2018-07-21 20:23] VITALS: BMI 39.2
[2018-07-21] MEDS: GABAPENTIN 300 MG CAP PO SCH (21:03)
[2018-07-21] MEDS: HYDROXYCHLOROQUINE SULFATE 200 MG TAB PO SCH (21:54)
[2018-07-21] MEDS: SENNOSIDES 8.6 MG TAB PO SCH (21:54)
[2018-07-21] MEDS: HYDROcodone/APAP 10-325MG 1 EACH TAB PO SCH (21:55)
[2018-07-21] MEDS: PANTOPRAZOLE 40 MG TABLET PO SCH (21:55)
[2018-07-21] MEDS: NYSTATIN 100,000 UNIT/GM POWD 15 GM TOPICAL SCH (21:58)
[2018-07-22] MEDS: VANCOMYCIN 1,500 MG in SODIUM CHLORIDE 0.9% 250 ML IVPB SCH ×2 (05:26→21:49)
[2018-07-22] MEDS: BUDESONIDE 0.5 MG/2 ML NEBU INHALATION SCH ×2 (07:31→19:53)
[2018-07-22] MEDS: IPRATROPIUM-ALBUTEROL 3 ML NEB INHALATION PRN ×2 (07:31→11:13)
[2018-07-22] MEDS: HYDROcodone/APAP 10-325MG 1 EACH TAB PO SCH ×2 (08:33→21:48)
[2018-07-22] MEDS: GABAPENTIN 300 MG CAP PO SCH ×3 (08:33→21:48)
[2018-07-22] MEDS: FOLIC ACID 1 MG TAB PO SCH (08:34)
[2018-07-22] MEDS: ENOXAPARIN 40 MG/0.4 ML SYRINGE SQ SCH (08:34)
[2018-07-22] MEDS: HYDROXYCHLOROQUINE SULFATE 200 MG TAB PO SCH ×2 (08:34→21:47)
[2018-07-22] MEDS: FUROSEMIDE 20 MG TAB PO SCH (08:34)
[2018-07-22] MEDS: VENLAFAXINE HCL ER 37.5 MG CAP PO SCH (08:35)
[2018-07-22] MEDS: FERROUS SULFATE 325 MG TAB PO SCH (08:35)
[2018-07-22] MEDS: MONTELUKAST 10 MG TAB PO SCH (08:35)
[2018-07-22] MEDS: SENNOSIDES 8.6 MG TAB PO SCH ×2 (08:35→21:48)
[2018-07-22] MEDS: PANTOPRAZOLE 40 MG TABLET PO SCH ×2 (08:35→21:48)
[2018-07-22] MEDS: NYSTATIN 100,000 UNIT/GM POWD 15 GM TOPICAL SCH ×2 (10:36→22:00)
--- NOTE | 2018-07-22 15:17 | PN ---
PROGRESS NOTE DATE OF SERVICE: 07/22/2018 CHIEF COMPLAINT: Cellulitis of lower legs. HISTORY OF PRESENT ILLNESS: This lady is doing fairly well, except she is a little bit wheezy and congested, which is not unusual for her. She has had no fever or chills, and the legs are starting to improve. There is less erythema and edema. PHYSICAL EXAMINATION: Chest demonstrates some inspiratory and expiratory wheezing with occasional rales. Cardiac exam is normal. The abdomen is soft and protuberant. Extremities demonstrate that the cellulitis in the lower legs is slightly less violaceous and there is slightly less edema. IMPRESSION: 1. Cellulitis of both lower extremities. 2. Venostasis disease of the lower extremities. 3. Reactive airway disease. PLAN: Continue with IV fluids and antibiotics. MMODL / IJN: [id number] /
[2018-07-23] MEDS: BUDESONIDE 0.5 MG/2 ML NEBU INHALATION SCH ×2 (07:07→19:24)
[2018-07-23] MEDS: IPRATROPIUM-ALBUTEROL 3 ML NEB INHALATION PRN ×4 (07:07→19:24)
[2018-07-23] MEDS: ENOXAPARIN 40 MG/0.4 ML SYRINGE SQ SCH (09:08)
[2018-07-23] MEDS: HYDROXYCHLOROQUINE SULFATE 200 MG TAB PO SCH ×2 (09:08→20:29)
[2018-07-23] MEDS: VENLAFAXINE HCL ER 37.5 MG CAP PO SCH (09:08)
[2018-07-23] MEDS: FUROSEMIDE 20 MG TAB PO SCH (09:08)
[2018-07-23] MEDS: SENNOSIDES 8.6 MG TAB PO SCH ×2 (09:08→20:32)
[2018-07-23] MEDS: MONTELUKAST 10 MG TAB PO SCH (09:08)
[2018-07-23] MEDS: FERROUS SULFATE 325 MG TAB PO SCH (09:08)
[2018-07-23] MEDS: PANTOPRAZOLE 40 MG TABLET PO SCH ×2 (09:08→20:31)
[2018-07-23] MEDS: GABAPENTIN 300 MG CAP PO SCH ×3 (09:08→20:32)
[2018-07-23] MEDS: FOLIC ACID 1 MG TAB PO SCH (09:09)
[2018-07-23] MEDS: HYDROcodone/APAP 10-325MG 1 EACH TAB PO SCH ×2 (09:10→20:29)
[2018-07-23] MEDS: NYSTATIN 100,000 UNIT/GM POWD 15 GM TOPICAL SCH ×2 (09:11→20:34)
[2018-07-23 09:53] LABS: Anion Gap 10 mmol/L; Blood Urea Nitrogen 18 mg/dL (7-17); Calcium 8.8 mg/dL (8.4-10.2); Carbon Dioxide 26 mmol/L (22-30); Chloride 104 mmol/L (98-107); Glucose 117 mg/dL (74-99); Potassium 3.6 mmol/L (3.5-5.1); Sodium 140 mmol/L (137-145)
[2018-07-23] MEDS: VANCOMYCIN 1,500 MG in SODIUM CHLORIDE 0.9% 250 ML IVPB SCH (13:39)
--- NOTE | 2018-07-23 15:15 | PN ---
PROGRESS NOTE DATE OF SERVICE: 07/23/2018. CHIEF COMPLAINT: Cellulitis of the lower legs and dysphagia. HISTORY OF PRESENT ILLNESS: This lady's legs are not improving a great deal, they are almost the same. IV antibiotics continue. She is also having some difficulty swallowing, which has been going on for several days. She has had no fever, chills, cough, hemoptysis, etc. PHYSICAL EXAM: Throat is negative. Chest is somewhat congested with occasional rhonchi. Cardiac exam is unchanged and soft. Her abdomen is soft, nontender. Extremities are just about the same and the cellulitis has not regressed in the last 24 hours. IMPRESSION: 1. Cellulitis and venous insufficiency of lower extremities. 2. Dysphagia. PLAN: 1. Barium swallow. 2. GI consult. 3. Continue with IV antibiotics and elevation of lower extremities. MMODL / IJN: [id number] /
[2018-07-24] MEDS ORDERED: VANCOMYCIN TROUGH DUE 1 EACH MISC MISCELLANE ONE (05:00)
[2018-07-24] MEDS: VANCOMYCIN 1,500 MG in SODIUM CHLORIDE 0.9% 250 ML IVPB SCH ×2 (05:47→20:38)
[2018-07-24 06:04] LABS: Anion Gap 8 mmol/L; Blood Urea Nitrogen 16 mg/dL (7-17); Calcium 8.7 mg/dL (8.4-10.2); Carbon Dioxide 30 mmol/L (22-30); Chloride 103 mmol/L (98-107); Glucose 102 mg/dL (74-99); Potassium 4.1 mmol/L (3.5-5.1); Sodium 141 mmol/L (137-145)
[2018-07-24] MEDS: IPRATROPIUM-ALBUTEROL 3 ML NEB INHALATION PRN ×4 (07:15→19:21)
[2018-07-24] MEDS: BUDESONIDE 0.5 MG/2 ML NEBU INHALATION SCH ×2 (07:15→19:21)
[2018-07-24] MEDS: BISACODYL 10 MG SUPP RECTAL SCH (08:52)
[2018-07-24] MEDS: ENOXAPARIN 40 MG/0.4 ML SYRINGE SQ SCH (10:47)
[2018-07-24] MEDS: SENNOSIDES 8.6 MG TAB PO SCH ×2 (10:48→20:38)
[2018-07-24] MEDS: FERROUS SULFATE 325 MG TAB PO SCH (10:48)
[2018-07-24] MEDS: MONTELUKAST 10 MG TAB PO SCH (10:48)
[2018-07-24] MEDS: HYDROcodone/APAP 10-325MG 1 EACH TAB PO SCH ×2 (10:48→20:37)
[2018-07-24] MEDS: FOLIC ACID 1 MG TAB PO SCH (10:49)
[2018-07-24] MEDS: GABAPENTIN 300 MG CAP PO SCH ×3 (10:49→20:37)
[2018-07-24] MEDS: FUROSEMIDE 20 MG TAB PO SCH (10:49)
[2018-07-24] MEDS: PANTOPRAZOLE 40 MG TABLET PO SCH ×2 (10:49→20:37)
[2018-07-24] MEDS: HYDROXYCHLOROQUINE SULFATE 200 MG TAB PO SCH ×2 (10:51→20:37)
[2018-07-24] MEDS: VENLAFAXINE HCL ER 37.5 MG CAP PO SCH (10:51)
[2018-07-24] MEDS: NYSTATIN 100,000 UNIT/GM POWD 15 GM TOPICAL SCH ×2 (10:52→20:38)
--- NOTE | 2018-07-24 12:25 | P.CONS ---
History of Present Illness - Reason for Consult Consult date: 07/24/18 Difficulty swallowing Requesting physician: Gunner Nelson - Chief Complaint Cellulitis - History of Present Illness 82-year-old female with a medical history significant for COPD, hypertension, gout, hyperlipidemia, ANA and rheumatoid arthritis who presented to the hospital with complaints of lower extremity inflammation and redness. Patient is currently undergoing treatment for bilateral lower extremity cellulitis. During her hospitalization the patient reported difficulty swallowing. She reports that the difficulty has been over the past month. She denies any triggering events, or new medications preceding the symptoms. She reports both dysphagia and odynophagia which has been progressive. She reports even difficulty swallowing soups and liquids yesterday while in the hospital. She feels as though food is getting stuck in the food pipe. She denies any prior history of food impaction. She reports that last EGD was approximately 15 years ago and believes it was normal. She did have a colonoscopy last year which she reports was significant for polypectomy. She reports that bowel movements have been every day, normal in color, caliber with no diarrhea, constipation, hematochezia or melena reported. Review of Systems REVIEW OF SYSTEMS: CONSTITUTIONAL: Denies any fevers, chills, weight change or fatigue. CARDIOVASCULAR: Denies any chest pain, palpitations high or low blood pressures RESPIRATORY: Denies any shortness of breath, hemoptysis or cough, does have a known history of COPD. GENITOURINARY: No dysuria or hematuria. MUSCULOSKELETAL: No weakness reported. SKIN: Denies anylesions, jaundice or pallor, but is currently being treated for bilateral lower extremity cellulitis. PSYCHIATRIC: Denies any depression or anxiety. NEUROLOGY: Denies headache, denies any new focal deficits. EARS/NOSE/THROAT: No recent hearing change, congestion, nasal discharge or sore throat. EYES: No pain in eyes, discharge or change in vision. GASTROINTESTINAL: As per HPI. Past Medical History Past Medical History: Cancer, Chest Pain / Angina, COPD, Hyperlipidemia, Hypertension, Osteoarthritis (OA), Rheumatoid Arthritis (RA), Sleep Apnea/ CPAP/BIPAP Additional Past Medical History / Comment(s): gout lupus depression History of Any Multi-Drug Resistant Organisms: None Reported Past Surgical History: Appendectomy, Breast Surgery, Cholecystectomy, Heart Catheterization, Joint Replacement, Orthopedic Surgery Additional Past Surgical History / Comment(s): Rt. mastectomy Past Anesthesia/Blood Transfusion Reactions: Blood Transfusion Reaction Additional Past Anesthesia/Blood Transfusion Reaction / Comm: Blood transfusion reaction with right shoulder surgery in [place] in 2009. Past Psychological History: Depression Smoking Status: Former smoker Past Alcohol Use History: None Reported Past Drug Use History: None Reported - Past Family History Brother(s) Family Medical History: Cancer Additional Family Medical History / Comment(s): rectal and liver Mother Family Medical History: CVA/TIA Father Family Medical History: Osteoarthritis (OA) Medications and Allergies Home Medications Medication Instructions Recorded Confirmed Type Cholecalciferol (Vitamin D3) 2,000 unit PO DAILY 04/16/17 07/21/18 History [Vitamin D3] Fluticasone Nasal [place] [Flonase 1 spray EA NOSTRIL DAILY PRN 04/16/17 07/21/18 History Nasal [place]] Hydroxychloroquine Sulfate 200 mg PO BID 04/16/17 07/21/18 History [Plaquenil] Omeprazole 20 mg PO BID 04/16/17 07/21/18 History Tiotropium 18 Mcg/Puff [Spiriva] 1 cap INHALATION RT-DAILY PRN 04/16/17 07/21/18 History rOPINIRole HCL [Requip] 2 mg PO BID 04/16/17 07/21/18 History Ferrous Sulfate [Iron (65 MG 325 mg PO DAILY tab 04/21/17 07/21/18 Rx Elemental)] Acetaminophen [Tylenol] 500 mg PO Q4-6H PRN 07/21/18 07/21/18 History Acetaminophen/Diphenhydramine 1 tab PO HS 07/21/18 07/21/18 History [Tylenol PM Extra Strength] Albuterol Sulfate [Proventil Hfa] 2 puff INHALATION RT-Q6H PRN 07/21/18 07/21/18 History Bisacodyl [Dulcolax] 10 mg RECTAL DAILY PRN 07/21/18 07/21/18 History Budesonide [Pulmicort] 0.5 mg INHALATION BID 07/21/18 07/21/18 History Clindamycin HCl [Cleocin] 600 mg PO BID 07/21/18 07/21/18 History Folic Acid 0.8 mg PO DAILY 07/21/18 07/21/18 History Furosemide [Lasix] 20 mg PO DAILY 07/21/18 07/21/18 History Gabapentin [Neurontin] 300 mg PO TID 07/21/18 07/21/18 History Hydrocodone/Acetaminophen [[place] 1 tab PO BID 07/21/18 07/21/18 History 10-325] Ipratropium-Albuterol Nebulize 1 vial INHALATION Q4H PRN 07/21/18 07/21/18 History [Duoneb 0.5 mg-3 mg/3 ml Soln] Mag Hydrox/Al Hydrox/Simeth 15 ml PO QID PRN 07/21/18 07/21/18 History [Maalox] Magnesium Hydroxide [Milk of 2,400 mg PO DAILY PRN 07/21/18 07/21/18 History Magnesia] Menthol [Biofreeze] 1 applic TOPICAL QID PRN MDD 07/21/18 07/21/18 History SHOULDERS AND BACK Montelukast Sodium [Singulair] 10 mg PO DAILY 07/21/18 07/21/18 History Na Phos,M-B/Na Phos,Di-Ba [Fleet 133 ml RECTAL Q4D PRN 07/21/18 07/21/18 History Adult] Nitroglycerin Sl Tabs [Nitrostat] 0.4 mg SUBLINGUAL Q5M PRN 07/21/18 07/21/18 History Nystatin 100,000 Unit/gm Powd 1 applic TOPICAL BID 07/21/18 07/21/18 History [Mycostatin Powder] Sennosides [Senna] 8.6 mg PO BID 07/21/18 07/21/18 History Venlafaxine HCl ER [Effexor Xr] 37.5 mg PO DAILY 07/21/18 07/21/18 History guaiFENesin [guaiFENesin Oral 200 mg PO TID PRN 07/21/18 07/21/18 History Solution] Allergies Allergy/AdvReac Type Severity Reaction Status Date / Time Penicillins Allergy Rash/Hives Verified 07/21/18 12:02 meloxicam [From Mobic] AdvReac Nausea & Verified 07/21/18 12:02 Vomiting Physical Exam Vitals: Vital Signs Temp Pulse Pulse Resp BP Pulse Ox 07/24/18 07:32 92 07/24/18 07:15 92 07/24/18 05:15 97.6 F 92 20 111/76 96 07/23/18 21:52 16 07/23/18 21:50 98.4 F 58 L 20 97/58 95 07/23/18 19:39 97 07/23/18 19:38 88 16 07/23/18 19:24 86 16 07/23/18 15:19 62 18 07/23/18 15:10 57 L 18 07/23/18 13:30 97.7 F 94 20 116/72 97 07/23/18 11:26 88 07/23/18 11:16 86 Intake and Output 07/23/18 07/24/18 07/24/18 22:59 06:59 14:59 Intake Total 200 100 Balance 200 100 Intake: Oral 200 100 Other: Voiding Method Toilet # Voids 0 1 # Bowel Movements 0 0 On physical examination, patient appears comfortable in no apparent distress. HEAD: Normocephalic, atraumatic. EYES: No scleral icterus. No conjunctival injection. MOUTH: No lesions, tongue midline. NECK: Trachea midline, no gross abnormalities. CHEST: Decreased air entry in all lung desai. HEART: Regular rate and rhythm. ABDOMEN: Soft, obese. Bowel sounds are positive. No organomegaly. No guarding or rigidity. EXTREMITIES: Bilateral lower extremity cellulitis. SKIN: No rashes, no jaundice. NEUROLOGIC: Alert and oriented x3. No focal deficits. Results CBC & Chem 7: 07/21/18 12:55 07/24/18 05:36 Labs: Abnormal Lab Results - Last 24 Hours (Table) 07/24/18 Range/Units 05:36 Glucose 102 H (74-99) mg/dL Microbiology - Last 24 Hours (Table) 07/21/18 12:55 Blood Culture - Preliminary Blood No Growth after 48 hours Assessment and Plan (1) Esophageal dysphagia Narrative/Plan: 82-year-old female who presents for treatment of lower extremity cellulitis who reports a one-month history of esophageal dysphagia which has been progressive. She reports dysphagia and odynophagia to both solids and liquids stating that it is painful given to swallow liquids and she has a sensation as though things are stuck in her food pipe. No prior history of GERD except during . Differential includes esophagitis, esophageal ulcer, candidiasis in the setting of education use for treatment of COPD or other etiology. Current Visit: Yes Status: Acute Code(s): R13.10 - DYSPHAGIA, UNSPECIFIED SNOMED Code(s): 32001569 (2) Bilateral lower leg cellulitis Current Visit: Yes Status: Acute Code(s): L03.116 - CELLULITIS OF LEFT LOWER LIMB; L03.115 - CELLULITIS OF RIGHT LOWER LIMB SNOMED Code(s): 712357215 Plan: Supportive care Nothing by mouth Would likely benefit from Protonix therapy Plan on EGD for further evaluation Further recommendations pending findings of upper endoscopy Continue other medical management Thank you for allowing us to participate in the care of the patient we will continue to follow
[2018-07-24] MEDS ORDERED: LIDOCAINE 1% INJ 10MG/ML (20 ML MDV) ONE (12:40)
[2018-07-24] MEDS ORDERED: PROPOFOL 10 MG/ML 20 ML VIAL IV ONE (12:40)
[2018-07-24] MEDS ORDERED: IV FLUID CONTINUATION 1,000 ML IV ONE (12:42)
--- NOTE | 2018-07-24 13:13 | P.PCN ---
Date of Procedure: 07/24/18 Description of Procedure: BRIEF HISTORY: 82-year-old female with a medical history significant for COPD, hypertension, gout, hyperlipidemia, ANA and rheumatoid arthritis who presented to the hospital with complaints of lower extremity inflammation and redness. Patient is currently undergoing treatment for bilateral lower extremity cellulitis. During her hospitalization the patient reported difficulty swallowing. She reports that the difficulty has been over the past month. She denies any triggering events, or new medications preceding the symptoms. She reports both dysphagia and odynophagia which has been progressive. She reports even difficulty swallowing soups and liquids yesterday while in the hospital. She feels as though food is getting stuck in the food pipe. She denies any prior history of food impaction. She reports that last EGD was approximately 15 years ago and believes it was normal. She did have a colonoscopy last year which she reports was significant for polypectomy. She reports that bowel movements have been every day, normal in color, caliber with no diarrhea, constipation, hematochezia or melena reported.. PROCEDURE PERFORMED: Esophagogastroduodenoscopy with biopsy and through the scope dilation of the esophagus. PREOPERATIVE DIAGNOSIS: Esophageal dysphagia, odynophagia. ESTIMATED BLOOD LOSS: Minimal. IV sedation per anesthesia. PROCEDURE: After informed consent was obtained, the patient was brought into the endoscopy unit. IV sedation was administered by Anesthesia under continuous monitoring. Initially the Olympus GIF-190 video endoscope was inserted into the mouth. Esophagus intubated with esophagitis noted to be somewhat tortuous with some residual food noted, and a tight GE junction which was able to be passed with the scope with gentle pressure. It was gradually advanced into the stomach and duodenum and carefully examined. The bulb and the second part of the duodenum appeared normal. The scope at this time was withdrawn to the stomach, adequately insufflated with air, and upon careful examination, mucosa of the antrum, body, cardia and the fundus appeared normal, except for some mild scattered erythema in the antrum and body suggestive of mild gastritis with biopsies of antrum and body taken. A large hiatal hernia was noted. The scope was then withdrawn into the esophagus. The GE junction was located at 35 cm from the incisors. Dilation of the GE junction with a [id number] balloon dilator to 12 and then 15 mm was performed. The esophagus appeared normal. There were no erosions or ulcerations seen, and mid esophageal biopsies were taken and the patient tolerated the procedure well. IMPRESSION: 1. Tortuous esophagus with narrowing at the GE junction suspicious for possible achalasia, with dilation of the GE junction with a [id number] balloon dilator to 12 mm and 15 mm. 2. Mild gastritis antrum and body biopsied. Mid esophageal biopsies. 3. Large hiatal hernia. RECOMMENDATIONS: The findings of this examination were discussed with the patient antral daughter. Continue Protonix daily. Okay for chopped diet. Will emphasize need to chew food well and take sips of water with eating. If patient continues to have problems can consider esophageal manometry in the outpatient setting.
--- NOTE | 2018-07-24 18:35 | PN ---
PROGRESS NOTE CHIEF COMPLAINT: Cellulitis lower extremities and difficulty swallowing. HISTORY OF PRESENT ILLNESS: This lady's legs are just about the same. They are not responding very quickly. They are a little bit less painful and she is not running a fever. She is being evaluated by GI for her pain in her throat and swallowing. PHYSICAL EXAM: Chest is clear. Cardiac exam is normal. Lymph nodes in the neck are not enlarged. Abdomen is soft, nontender and legs are still edematous and erythematous. IMPRESSION: 1. Cellulitis of the lower extremities with stasis dermatitis. 2. Pain in the throat, difficulty swallowing. PLAN: 1. Continue with IV antibiotics and elevation of the legs. 2. Await recommendations from GI. MMODL / IJN: [id number] /
[2018-07-25] MEDS: HYDROcodone/APAP 10-325MG 1 EACH TAB PO SCH ×2 (07:25→21:53)
[2018-07-25] MEDS: FUROSEMIDE 20 MG TAB PO SCH (07:25)
[2018-07-25] MEDS: FERROUS SULFATE 325 MG TAB PO SCH (07:25)
[2018-07-25] MEDS: BISACODYL 10 MG SUPP RECTAL SCH (07:25)
[2018-07-25] MEDS: MONTELUKAST 10 MG TAB PO SCH (07:25)
[2018-07-25] MEDS: GABAPENTIN 300 MG CAP PO SCH ×3 (07:25→21:54)
[2018-07-25] MEDS: SENNOSIDES 8.6 MG TAB PO SCH ×2 (07:25→21:55)
[2018-07-25] MEDS: PANTOPRAZOLE 40 MG TABLET PO SCH ×2 (07:25→21:54)
[2018-07-25] MEDS: FOLIC ACID 1 MG TAB PO SCH (07:27)
[2018-07-25] MEDS: ENOXAPARIN 40 MG/0.4 ML SYRINGE SQ SCH (07:27)
[2018-07-25] MEDS: HYDROXYCHLOROQUINE SULFATE 200 MG TAB PO SCH ×2 (07:27→21:54)
[2018-07-25] MEDS: VENLAFAXINE HCL ER 37.5 MG CAP PO SCH (07:27)
[2018-07-25] MEDS: NYSTATIN 100,000 UNIT/GM POWD 15 GM TOPICAL SCH ×2 (07:29→21:56)
[2018-07-25] MEDS: IPRATROPIUM-ALBUTEROL 3 ML NEB INHALATION PRN ×2 (08:28→11:46)
[2018-07-25] MEDS: BUDESONIDE 0.5 MG/2 ML NEBU INHALATION SCH ×2 (08:28→19:47)
[2018-07-25 08:38] LABS: Anion Gap 7 mmol/L; Blood Urea Nitrogen 14 mg/dL (7-17); Calcium 8.5 mg/dL (8.4-10.2); Carbon Dioxide 32 mmol/L (22-30); Chloride 102 mmol/L (98-107); Glucose 109 mg/dL (74-99); Potassium 3.6 mmol/L (3.5-5.1); Sodium 141 mmol/L (137-145)
--- NOTE | 2018-07-25 14:12 | P.PN ---
Subjective Progress Note Date: 07/25/18 Principal diagnosis: Dysphagia Status post EGD with findings of tortuous esophagus narrowing GE junction possible achalasia status post GE junction dilation. Feels well. Anticipating discharge later today. Tolerating diet. Afebrile. Objective - Vital Signs Vital signs: Vital Signs Temp 98.1 F 07/25/18 11:36 Pulse 80 07/25/18 12:07 Resp 17 07/25/18 11:36 BP 109/53 07/25/18 11:36 Pulse Ox 98 07/25/18 11:36 Intake & Output 07/24/18 07/25/18 07/25/18 18:59 06:59 18:59 Intake Total 50 480 Balance 50 480 Intake: IV 50 Oral 480 Other: Voiding Method Bedside Commode Bedside Commode # Voids 3 3 # Bowel Movements 1 - Exam General appearance: The patient is alert, oriented, in no acute distress. HET: Head is normocephalic and atraumatic. Pupils are equal and reactive. Oropharynx is clear without lesions. Neck: Supple without lymphadenopathy. Trachea midline. Heart: S1 S2. Regular rate and rhythm. Lungs: No crackles or wheezes are heard. Abdomen: Soft, nontender, nondistended with bowel sounds. No peritoneal signs. No palpable organomegaly or masses. Extremities: Normal skin color and turgor. No cyanosis, rash, ulceration, clubbing, or edema. Radial and pedal pulses are 2/4 bilaterally. Neurological: No focal deficits. Strength and sensation are grossly intact. - Labs CBC & Chem 7: 07/21/18 12:55 07/25/18 08:00 Labs: Abnormal Lab Results - Last 24 Hours (Table) 07/25/18 Range/Units 08:00 Carbon Dioxide 32 H (22-30) mmol/L Glucose 109 H (74-99) mg/dL Microbiology - Last 24 Hours (Table) 07/21/18 12:55 Blood Culture - Preliminary Blood No Growth after 72 hours Assessment and Plan (1) Esophageal dysphagia Narrative/Plan: Status post EGD tortuous esophagus with narrowing at GE junction status post dilation possible achalasia biopsies pending. Current Visit: Yes Status: Acute Code(s): R13.10 - DYSPHAGIA, UNSPECIFIED SNOMED Code(s): 98448544 Plan: Continue Protonix daily. Okay for chopped diet. Will emphasize need to chew food well and take sips of water with eating. If patient continues to have problems can consider esophageal manometry in the outpatient setting. Return to office in 2-3 weeks. Agreeable for discharge. Assessment and plan a care discussed with Dr. Hudson
[2018-07-25] MEDS: VANCOMYCIN 1,500 MG in SODIUM CHLORIDE 0.9% 250 ML IVPB SCH (14:14)
--- NOTE | 2018-07-25 19:26 | PN ---
PROGRESS NOTE CHIEF COMPLAINT: Cellulitis of lower extremities and dysphagia. HISTORY OF PRESENT ILLNESS: This lady's endoscopy revealed esophagitis, hiatal hernia and mild stricture. Her legs are not improving a great deal. PHYSICAL EXAM: Cellulitis and edema of lower extremities just about the same. Chest is clear. Cardiac exam is normal. IMPRESSION: 1. Slowly resolving cellulitis and lymphangitis of the lower extremities. 2. Hiatal hernia. 3. Esophagitis. 4. Esophageal stricture. PLAN: Continue with IV antibiotics and IV fluids in hopes that her legs will respond better before going back to the [facility]. MMODL / IJN: [id number] /
[2018-07-26] MEDS ORDERED: VANCOMYCIN TROUGH DUE 1 EACH MISC MISCELLANE ONE (05:00)
[2018-07-26] MEDS: VANCOMYCIN 1,500 MG in SODIUM CHLORIDE 0.9% 250 ML IVPB SCH (06:09)
[2018-07-26 06:33] LABS: Anion Gap 4 mmol/L; Blood Urea Nitrogen 11 mg/dL (7-17); Calcium 8.4 mg/dL (8.4-10.2); Carbon Dioxide 34 mmol/L (22-30); Chloride 101 mmol/L (98-107); Glucose 96 mg/dL (74-99); Potassium 3.3 mmol/L (3.5-5.1); Sodium 139 mmol/L (137-145)
[2018-07-26] MEDS: BUDESONIDE 0.5 MG/2 ML NEBU INHALATION SCH (07:33)
[2018-07-26] MEDS: BISACODYL 10 MG SUPP RECTAL SCH (08:10)
[2018-07-26] MEDS: ENOXAPARIN 40 MG/0.4 ML SYRINGE SQ SCH (08:11)
[2018-07-26] MEDS: PANTOPRAZOLE 40 MG TABLET PO SCH (08:11)
[2018-07-26] MEDS: HYDROcodone/APAP 10-325MG 1 EACH TAB PO SCH (08:11)
[2018-07-26] MEDS: FUROSEMIDE 20 MG TAB PO SCH (08:11)
[2018-07-26] MEDS: FERROUS SULFATE 325 MG TAB PO SCH (08:11)
[2018-07-26] MEDS: GABAPENTIN 300 MG CAP PO SCH (08:12)
[2018-07-26] MEDS: SENNOSIDES 8.6 MG TAB PO SCH (08:12)
[2018-07-26] MEDS: MONTELUKAST 10 MG TAB PO SCH (08:12)
[2018-07-26] MEDS: NYSTATIN 100,000 UNIT/GM POWD 15 GM TOPICAL SCH (08:13)
[2018-07-26] MEDS: FOLIC ACID 1 MG TAB PO SCH (08:14)
[2018-07-26] MEDS: VENLAFAXINE HCL ER 37.5 MG CAP PO SCH (08:14)
[2018-07-26] MEDS: HYDROXYCHLOROQUINE SULFATE 200 MG TAB PO SCH (08:14)
[2018-07-26 12:01] VITALS: BP 121/66; PULSE 91; RESP 17; TEMP 98.3
--- NOTE | 2018-07-26 12:10 | DS ---
DISCHARGE SUMMARY CHIEF COMPLAINT: Pain, swelling, redness and inflammation of the lower legs with chills and fever. HISTORY OF PRESENT ILLNESS AND PHYSICAL EXAM: Details of this lady's history and physical can be found in the initial workup. LABORATORY STUDIES: While she was in a hospital she had laboratory studies, details of which can be found in the laboratory section of her chart. COURSE IN THE HOSPITAL: After admission she was placed on bedrest, started on intravenous fluids and IV antibiotics. Legs were elevated as much as possible. Cellulitis and edema in the lower legs was slow to improve. While she was in a hospital, she had some difficulty with dysphagia and was seen by GI who took her for endoscopy to find a hiatal hernia, esophagitis and a stricture. Legs were to continue to improve and it was felt she could go back to the care home on 07/26. FINAL DIAGNOSES: 1. Cellulitis and lymphangitis in the lower extremities. 2. Dependent edema and venostasis disease of the lower extremities. 3. History of carcinoma of the breast. 4. History of osteomyelitis of the right shoulder. 5. Hiatal hernia. 6. Esophagitis. 7. Esophageal stricture. OPERATIONS: Endoscopy. CONSULTATIONS: GI. She is improved. MMODL / IJN: [id number] /
[2018-07-26] MEDS ORDERED: POTASSIUM CHLORIDE ER 20 MEQ TAB.ER PO STA (12:14)
[2018-07-26] MEDS ORDERED: CEPHALEXIN 500 MG CAP PO SCH (13:00)
[2018-07-26] MEDS ORDERED: POTASSIUM CHLORIDE ER 20 MEQ TAB.ER PO SCH (21:00)
[2018-07-27] MEDS ORDERED: VANCOMYCIN 1,500 MG in SODIUM CHLORIDE 0.9% 250 ML IVPB SCH ×2
== END 2018-07-26 16:45 | DRG 603 ==
LOC: EC 11:17 → 4MS4W 12:16 → 3NMEDONC 07-24 17:45
PROVIDERS: ADMIT Family Medicine; ATTEND Family Medicine
PROC: 0D748ZZ Dilation of Esophagogastric Junction, Via Natural or Artificial Opening Endoscopic (ICD-10-PCS; principal; 2018-07-21)
PROC: 0DB78ZX Excision of Stomach, Pylorus, Via Natural or Artificial Opening Endoscopic, Diagnostic (ICD-10-PCS; 2018-07-21)
DX: L03.116 Cellulitis of left lower limb (principal); L03.115 Cellulitis of right lower limb; J44.9 Chronic obstructive pulmonary disease, unspecified; K22.2 Esophageal obstruction; R13.14 Dysphagia, pharyngoesophageal phase; I87.2 Venous insufficiency (chronic) (peripheral); M06.9 Rheumatoid arthritis, unspecified; E66.9 Obesity, unspecified; I10 Essential (primary) hypertension; G47.33 Obstructive sleep apnea (adult) (pediatric); E78.5 Hyperlipidemia, unspecified; M19.90 Unspecified osteoarthritis, unspecified site; M10.9 Gout, unspecified; F32.9 Major depressive disorder, single episode, unspecified; I89.0 Lymphedema, not elsewhere classified; K44.9 Diaphragmatic hernia without obstruction or gangrene; K20.9 Esophagitis, unspecified; K29.70 Gastritis, unspecified, without bleeding; Z66 Do not resuscitate; Z68.39 Body mass index [BMI] 39.0-39.9, adult; Z79.899 Other long term (current) drug therapy; Z85.3 Personal history of malignant neoplasm of breast; Z90.49 Acquired absence of other specified parts of digestive tract; Z86.010 Personal history of colon polyps; Z90.11 Acquired absence of right breast and nipple; Z87.891 Personal history of nicotine dependence; Z96.611 Presence of right artificial shoulder joint; Z88.6 Allergy status to analgesic agent; Z88.0 Allergy status to penicillin; Z82.61 Family history of arthritis; Z80.9 Family history of malignant neoplasm, unspecified
CPT/HCPCS: 36415; 43239; 43249; 80048; 80053; 80202; 83605; 83735; 84100; 84484; 85025; 87040; 88305; 88312; 93005; 94640; 94760; 96365; 96366; 96367; 99285